=== PATIENT | male | born 1970 | race American Indian/Alaskan Native ===

== ENCOUNTER 2018-05-08 09:31 | Emergency (ER) | payer OTHER ==
[2018-05-08] MEDS ORDERED: FUL-GLO OP ONE (11:05)
[2018-05-08] MEDS ORDERED: TETRACAINE 0.5% OS STA (11:05)
[2018-05-08] MEDS ORDERED: BOOSTRIX IM ONE (11:11)
[2018-05-08] MEDS ORDERED: DILAUDID IV ONE (11:11)
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
--- NOTE | 2018-05-08 12:06 | Cat Scan Report ---
CT FACIAL BONES WITHOUT CONTRAST: HISTORY: Headache, eye trauma. TECHNIQUE: Helical CT images with sagittal and coronal CT reformations. FINDINGS: A mildly displaced left nasal bone fracture is identified. Comminuted fractures are identified involving the left anterior maxillary sinus, left inferior orbital wall and left medial orbital wall. No additional facial fractures are identified. There is mild mucosal thickening throughout all paranasal sinuses. The left ethmoid air cells are opacified. Orbital contents appear intact and symmetric bilaterally. There is moderate left periorbital soft tissue swelling. The imaged brain is unremarkable. The skull base is intact. IMPRESSION: Multiple left facial fractures as described. Fractures include the left nasal bone, left anterior maxillary sinus wall, left inferior orbital wall and left medial orbital wall.
[2018-05-08 12:10] LABS: Hematocrit 40.1 % (35.5-45.6); Hemoglobin 14.2 gm/dl (11.8-15.2); Mean Corpuscular HGB Conc 36 % (32-34); Mean Corpuscular Hemoglobin 34 pg (28-32); Mean Corpuscular Volume 95 fl (84-94); Platelet Count 246 K/mm3 (140-440); Red Blood Count 4.22 M/mm3 (3.65-5.03); Red Cell Distribution Width 14.4 % (13.2-15.2)
[2018-05-08 12:21] LABS: INR 0.97 (0.87-1.13)
[2018-05-08 12:28] LABS: BUN/Creatinine Ratio 9; Blood Urea Nitrogen 7 mg/dL (9-20); Calcium 9.3 mg/dL (8.4-10.2); Hemolysis Index 28
[2018-05-08] MEDS ORDERED: SUBLIMAZE IV ONE (12:35)
[2018-05-08] MEDS ORDERED: SUBLIMAZE ONE (12:37)
--- NOTE | 2018-05-08 13:02 | Cat Scan Report ---
CT HEAD WITHOUT CONTRAST: HISTORY: Headache, eye trauma. TECHNIQUE: Sequential 2.5mm CT images. COMPARISON: none. FINDINGS: Cerebral Parenchyma: Within normal limits. Cerebellum: Within normal limits. Brainstem: Within normal limits. Ventricles: Normal. Sella: Normal. Extra-axial spaces: Normal. Basal Cisterns: Normal. Intracranial Hemorrhage: None. Midline Shift: None. Mastoid Air Cells: Normal. Visualized Orbits: Multiple left facial fractures are partially imaged, please refer to the CT facial bones report performed the same day. IMPRESSION: No acute intracranial injury is appreciated. Left facial fractures, see above.
[2018-05-08 13:53] VITALS: BP 178/106
== END 2018-05-08 13:53 | disposition short-term general hospital (02) ==
LOC: ED 09:31
DX: S01.112A Laceration without foreign body of left eyelid and periocular area, initial encounter (principal); S02.92XA Unspecified fracture of facial bones, initial encounter for closed fracture; Y04.2XXA Assault by strike against or bumped into by another person, initial encounter; Y93.89 Activity, other specified; Y99.8 Other external cause status; Y92.89 Other specified places as the place of occurrence of the external cause
CPT/HCPCS: 36415; 70450; 70486; 80048; 85027; 85610; 90471; 90715; 93005; 93010; 96374; 96375; 99285; J1170; J3010

== ENCOUNTER 2019-05-10 08:00 | Emergency (ER) | payer BC, OTHER ==
[2019-05-10] MEDS ORDERED: NACL 0.9% 1000 ML 1,000 ML IV ONE (09:51)
[2019-05-10] MEDS ORDERED: TORADOL IV STA (09:51)
[2019-05-10 10:34] LABS: Basophils # (Auto) 0.1 K/mm3 (0.0-0.1); Basophils % (Auto) 0.9 % (0.0-1.8); Eosinophils # (Auto) 0.2 K/mm3 (0.0-0.4); Eosinophils % (Auto) 2.7 % (0.0-4.3); Hematocrit 36.6 % (35.5-45.6); Hemoglobin 12.8 gm/dl (11.8-15.2); Lymphocytes # (Auto) 0.7 K/mm3 (1.2-5.4); Lymphocytes % (Auto) 13.1 % (13.4-35.0); Mean Corpuscular HGB Conc 35 % (32-34); Mean Corpuscular Volume 92 fl (84-94); Monocytes # (Auto) 0.3 K/mm3 (0.0-0.8); Monocytes % (Auto) 4.7 % (0.0-7.3); Platelet Count 289 K/mm3 (140-440); Red Blood Count 3.98 M/mm3 (3.65-5.03); Red Cell Distribution Width 14.1 % (13.2-15.2)
[2019-05-10 11:02] LABS: Alanine Aminotransferase 7 units/L (7-56); Albumin 4.6 g/dL (3.9-5); BUN/Creatinine Ratio 12; Blood Urea Nitrogen 13 mg/dL (9-20); Calcium 9.9 mg/dL (8.4-10.2); Hemolysis Index 0
[2019-05-10 14:35] LABS: Bacteria,Urine 1+ /HPF (Negative); Bilirubin,Urine NEG (Negative); Blood,Urine NEG (Negative); Color,Urine Yellow (Yellow); Mucus,Urine 3+ /HPF; Protein,Urine <15 mg/dL mg/dL (Negative); Urobilinogen,Urine < 2.0 mg/dL (<2.0)
[2019-05-10] MEDS ORDERED: LEVAQUIN PO STA (15:22)
[2019-05-10 15:43] VITALS: BP 144/106
== END 2019-05-10 15:41 | disposition home or self-care (01) ==
LOC: ED 08:00
DX: N20.0 Calculus of kidney (principal); Z53.21 Procedure and treatment not carried out due to patient leaving prior to being seen by health care provider
CPT/HCPCS: 36415; 80053; 81001; 83690; 85025; 87086; J1885; J7030; 96374

== ENCOUNTER 2019-05-13 07:47 | Emergency (ER) | payer SELFPAY ==
[2019-05-13] MEDS ORDERED: TORADOL IM ONE (09:11)
[2019-05-13] MEDS ORDERED: PERCOCET 5/325 PO ONE (09:11)
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
--- NOTE | 2019-05-13 11:17 | XRay Report ---
LEFT HIP 3 VIEWS INDICATION / CLINICAL INFORMATION: FALL INJURY WITH HIP PAIN. COMPARISON: None available. FINDINGS: Moderately displaced intertrochanteric fracture, without significant comminution. No additional fractures. Signer Name: Jayesh Brannon MD Signed: 05/13/2019 11:12 AM Workstation Name: [id number]
--- NOTE | 2019-05-13 11:29 | XRay Report ---
Lumbar spine series, digital radiographs, 3 views CLINICAL HISTORY: Trauma. Patient fell with low back injury. Low back pain. TECHNIQUE: AP, lateral and coned-down lateral lumbosacral junction images were acquired. The examinat ion was performed with the patient in the supine position with crosstable lateral lateral views obtai alhaji. The lateral views including full length lateral and coned-down lateral lumbosacral spine are mar kedly underpenetrated. This is a limited study. FINDINGS: Normal alignment is maintained throughout the lumbar region. There is no indication of fracture or tr aumatic subluxation. Advanced degenerative disc disease is noted at the lumbosacral junction where lo ss of disc height and disc vacuum phenomena are demonstrated. Anterior osteophyte formation is also o bserved at this level. Disc height is fairly well maintained elsewhere. There is evidence of facet ar thropathy at L4-5 and L5-S1 levels. Vertebral bodies, pedicles, transverse processes and spinous processes all appear to be intact. Sacroiliac joints have an unremarkable appearance. IMPRESSION: 1. Limited study as described above. 2. Advanced degenerative disc disease L5-S1. 3. No additional abnormality. Signer Name: Klever Ruiz MD Signed: 05/13/2019 11:25 AM Workstation Name: [email or web address]
[2019-05-13] MEDS ORDERED: ZOFRAN IV ONE (11:44)
[2019-05-13] MEDS ORDERED: MORPHINE IV ONE ×2 (11:44→12:31)
[2019-05-13 12:48] VITALS: BP 142/84
== END 2019-05-13 13:16 | disposition other institution (70) ==
LOC: ED 07:47
DX: S72.142A Displaced intertrochanteric fracture of left femur, initial encounter for closed fracture (principal); I10 Essential (primary) hypertension; F17.200 Nicotine dependence, unspecified, uncomplicated; W10.8XXA Fall (on) (from) other stairs and steps, initial encounter; Y93.89 Activity, other specified; Y92.098 Other place in other non-institutional residence as the place of occurrence of the external cause; Y99.8 Other external cause status
CPT/HCPCS: 72100; 73502; 96372; 96374; 96375; 96376; 99284; J1885; J2270; J2405